=== PATIENT | male | born 1965 ===

== ENCOUNTER 2021-11-29 05:52 | Day surgery (SDC) | payer OTHER ==
[~2021-11-29 05:52] MED LIST: AVENTYL HCL25 MG PO; CLONAZEPAM0.5 MG PO; CLONAZEPAM1 MG PO; COZAAR100 MG PO; LIPITO PO; TAMS0.4C PO
[2021-11-29] MEDS ORDERED: NEURONTIN300 MG PO (09:23)
[2021-11-29] MEDS ORDERED: DERMOPLAST PAIN78 GM TOP (09:23)
[2021-11-29] MEDS ORDERED: PERCOCET 5-3251 EACH PO (09:23)
== END 2021-11-29 13:15 | disposition home or self-care (01) ==
LOC: CIR.AMB 05:52
PROVIDERS: ATTEND Surgery
DX: K64.8 Other hemorrhoids (principal); Z88.6 Allergy status to analgesic agent; I10 Essential (primary) hypertension; Z87.891 Personal history of nicotine dependence